=== PATIENT | female | born 1945 | race Caucasian/White ===

== ENCOUNTER 2018-11-12 11:50 | Day surgery (SDC) | payer MEDICARE, OTHER ==
[~2018-11-12 11:50] MED LIST: ALEVE220 MG PO; IRON18 MG PO; OXYCODONE HCL5 MG PO; PERCOCET 7.5-31 EACH PO; TYLENOL325 MG PO; VITAMIN B-12250 MCG PO; VITAMIN C100 MG PO; VITAMIN D32000 UNI1 PO
[2018-11-12] MEDS ORDERED: TURMERIC500 M2 PO (12:05)
[2018-11-12] MEDS ORDERED: MAGNESIUM100 MG PO (12:05)
--- NOTE | 2018-11-13 15:36 | OR ---
[facility] [address] [facility] [place], [place] [address] Signed DATE OF OPERATION: 11/12/2018 SURGEON: Alona Matthews MD DATE OF PROCEDURE: 11/12/2018 PREOPERATIVE DIAGNOSES: 1. Right breast mass with axillary adenopathy consistent with advanced breast cancer. 2. History of left total mastectomy with axillary dissection, radiation therapy and chemotherapy for breast cancer in 1991 (Dr. Sal Asif). 3. Recent findings of positive BRCA mutation. POSTOPERATIVE DIAGNOSES: 1. Right breast mass with axillary adenopathy consistent with advanced breast cancer. 2. History of left total mastectomy with axillary dissection, radiation therapy and chemotherapy for breast cancer in 1991 (Dr. Sal Asif). 3. Recent findings of positive BRCA mutation. PROCEDURE: Right upper outer quadrant core biopsy of breast. ANESTHESIA: 1% lidocaine. INDICATION: A 73-year-old white woman is a patient of SHAMIR Lizarraga, who was found to have a dense mass per right breast measures at least 6 cm. A mammogram showed a BI-RADS category 5 lesion. Clinical examination shows a dense mass, but non fixation to the chest wall. There is axillary adenopathy which is highly suspicious. She has no arm edema. Of special note, she underwent left modified radical mastectomy by Dr. Sal Asif in 1991 for breast cancer. Therapy included chemotherapy and radiation therapy, she tells me. Given the distance of time since that intervention, no other medical records are available locally. She has recently undergone BRCA testing by Dr. Radha Power, and found to be positive. She was admitted at this time to undergo core biopsy of the breast lesion on the right, Electronically Signed By: ALONA MATTHEWS MD 11/13/18 1536 PATIENT NAME: JALYN NICHOLSON OPERATIVE REPORT DATE OF : 47 REPORT #: [id number] PHYSICIAN: ALONA MATTHEWS MD PCP: RADHA PWOER REPORT IS CONFIDENTIAL AND NOT TO BE RELEASED WITHOUT AUTHORIZATION [facility] [address] [place], [place] [address] Signed anticipating likely a modified radical mastectomy. Risks of bleeding, infection, and so forth were reviewed with her. She understands and wished to proceed. FINDINGS: The lesion was quite dense, but 5 good core biopsies were taken of the upper outer quadrant of the breast. The breast is mobile and not fixed to the chest wall. Axillary adenopathy was in the low axilla and biopsy was not taken of axillary lymph node. DESCRIPTION OF PROCEDURE: In a semirecumbent position the right breast was prepared with a chlorhexidine solution and draped sterilely. A 1% lidocaine was injected in the upper outer aspect of the right breast. A small puncture was made with an #11 blade. Using a 14-gauge biopsy gun device multiple biopsies were taken of the upper outer quadrant of the breast showing good core specimens. Pressure was applied to the biopsy site as there was a small amount of venous oozing. Once hemostasis was assured. A bandage was applied. I have discussed with the patient in detail the particulars regarding her situation and recommendation is made for modified radical mastectomy once pathology is confirmed as malignancy. This is particularly a notable recommendation given her BRCA testing, which was positive. I have reviewed with the medical oncologist whether or not preoperative chemotherapy would be necessary. She does not have inflammatory breast cancer and the advantage of neoadjuvant approach is primarily to shrink the tumor size down to allow for breast conservation therapy which is undesired and unlikely in her situation anyway. On that basis, proceeding to mastectomy and axillary dissection next week will be arranged as she allows. MD NAILA Coyle/MODL /[id number] cc: ISAIAH Salcido Copies: RADHA POWER Electronically Signed By: ALONA MATTHEWS MD 11/13/18 1536 PATIENT NAME: JALYN NICHOLSON OPERATIVE REPORT DATE OF : 47 REPORT #: [id number] PHYSICIAN: ALONA MATTHEWS MD PCP: RADHA POWER REPORT IS CONFIDENTIAL AND NOT TO BE RELEASED WITHOUT AUTHORIZATION [facility] [address] [facility] [place], [place] [address] Signed ~ Electronically Signed By: ALONA MATTHEWS MD 11/13/18 1536 PATIENT NAME: JALYN NICHOLSON OPERATIVE REPORT DATE OF : 47 REPORT #: [id number] PHYSICIAN: ALONA MATTHEWS MD PCP: RADHA POWER REPORT IS CONFIDENTIAL AND NOT TO BE RELEASED WITHOUT AUTHORIZATION
== END 2018-11-12 12:55 | disposition home or self-care (01) ==
LOC: RAD 11:50
PROC: 0HBT3ZX Excision of Right Breast, Percutaneous Approach, Diagnostic (ICD-10-PCS; principal; 2018-11-12)
DX: C50.411 Malignant neoplasm of upper-outer quadrant of right female breast (principal); Z92.3 Personal history of irradiation; Z90.12 Acquired absence of left breast and nipple; Z85.3 Personal history of malignant neoplasm of breast
CPT/HCPCS: 71046; 88305; 88342; 88360; 88377

== ENCOUNTER 2018-11-19 07:19 | Observation (INO) | payer MEDICARE, OTHER ==
[~2018-11-19] VITALS: Ht 160 cm; Wt 83.9 kg
[~2018-11-19 07:19] MED LIST changes: +MAGNESIUM100 MG PO; +TURMERIC500 M2 PO
--- NOTE | 2018-11-19 12:15 | NUR ---
PT IS SITTING IN BED-ALERT, ORIENTED AND SUPPORTED BY HER REBA. PT MENTIONED THAT HAD NOT BEEN IN YET, CHRISTIANO HAD. PT REQUESTED PRAYER, WILL FOLLOW NEEDED
--- NOTE | 2018-11-19 13:54 | NUR ---
11/19/18 1354 Le[address] Luna SN 1324- PT ARRIVES IN PACU. PT IS RESTING WITH EYES OPEN IN SUPINE POSITION. RESPS ARE EVEN AND UNLABORED. 02 SAT HIGH 90'S ON 6L VIA MASK. PT REPORTS 3 OUT OF 10 PAIN THAT IS TOLERABLE TO HER. EDUCATED TO REPORT IF THIS WORSENS. PT VERBALIZED UNDERSTANDING. PT DENIES ANY NAUSEA AND DIZZINESS AT THIS TIME. 1334- PT RESTING IN SUPINE POSITION WITH EYES OPEN, TOLERATING WELL. RESPS EVEN AND UNLABORED, 02 SAT HIGH 90S ON 6 LV VIA NC. PT REPORTING 3 OUT OF 10 PAIN THAT IS TOLERABLE FOR HER. EDUCATION GIVEN TO REPORT IF THIS WORSENS. 02 REMOVED AT THIS TIME. RESPS REMAIN EVEN AND UNLABORED. 02 SAT MID TO HIGH 90S ON RA. 1345-PT 02 PERIODICALLY DROPS TO LOW 90'S AND RESPS BECOME SHALLOW. WHEN STIMULATED BY VOICE, PT IS ABLE TO BRING 02 SAT BACK UP INDEPENDENTLY BY DEEP BREATHING. 1346- HOB POSITION IN SEMIFOWLERS POSITION. PT REPORTS THAT IT IS EASIER FOR HER TO BREATHE THIS WAY. TOLERATING WELL. RESPS ARE EVEN AND UNLABORED BUT REMAIN SHALLOW AT TIMES. PT 02 SAT CONTINUES TO PERIODICALLY DROP TO THE LOW 90'S AND RESPS PERIODICALLY DROP. WHEN STIMULATED BY VOICE, THE PT IS ABLE TO INCREASE THESE INDEPENDENTLY BY COUGHING AND DEEP BREATHING. PT REPORTS 3 OUT OF 10 PAIN THAT IS TOLERABLE FOR HER. SHE REPORTS NO DIZZINESS OR NAUSEA AT THIS TIME.
--- NOTE | 2018-11-19 14:55 | NUR ---
PT RESTING IN BED. VSS. PT RATING PAIN 2/10. PT ON ROOM AIR, LUNG SOUNDS CLEAR, O2 SATS 99%. PT TOLERATED CLEAR LIQUID, DENIES NAUSEA. PT SBA TO BATHROOM, VOIDED. PT STATES INCREASED PAIN WITH MOVEMENT, DISCUSSED PAIN MEDICATIONS, PT REQUESTING MOTRIN AFTER DINNER. PT DENIES OTHER NEEDS AT THIS TIME.
--- NOTE | 2018-11-19 15:43 | NUR ---
PT RESTIGN IN BED. PT ON ROOM AIR, O2 SATS 99%. PT EATING CLEARS TRAY, TOLERATING WELL, DENIES NAUSEA. PIA FROM BREAST TEAM AT BEDSIDE TO FIT CAMISOLE. MARIETTA DRAIN X2 EMPTIED FOR 40 ML LATERAL AND 20 ML MEDIAL, MARIETTA DRAIN TEACHING COMPLETED, WILL CONTINUE TO EDUCATE PT. DRESSING CDI. PT DENIES OTHER NEEDS AT THIS TIME. VSS.
--- NOTE | 2018-11-19 17:40 | NUR ---
PT RESTING IN BED. PT PAIN TOLERABLE, GIVEN 600 MG MOTRIN PER PT REQUEST. MARIETTA DRAINS EMPTIED FOR 30 ML LATERAL AND 50 ML MEDIAL. PT ON ROOM AIR, O2 SATS 99%. PT TOLERATED REGULAR DIET. VSS. PT DENIES OTHER NEEDS AT THIS TIME.
--- NOTE | 2018-11-19 18:04 | NUR ---
PT RECEIVED FROM PACU AT 1420 FOR RIGHT MASTECTOMY. PT ON ROOM AIR, LUNG SOUNDS CLEAR. PT TOLERATING REGULAR DIET, DENIES NAUSEA. IV FLUIDS INFUSING D5LR AT 85 ML/HR, ANCEF. PT PAIN WELL CONTROLLED, RECEIVED MOTRIN. SBA TO AMBULATE TO BATHROOM, VOIDING QS. RIGHT CHEST WITH MEPILEX/OPSITE DRESSING CDI. MARIETTA DRAIN X2, DRAINED 70 ML FROM EACH SINCE ARRIVING TO FLOOR. SCDS IN PLACE.
--- NOTE | 2018-11-19 19:30 | NUR ---
PAIN 3/10 NO PAIN MEDS WANTED. AT BEDSIDE. GIVEN REPORT FROM DAYSAIXA RN.
--- NOTE | 2018-11-19 21:05 | NUR ---
VITALS AND I&os done and charted. fresh ice water given to pt and cranberry juice for her . bedside table and call light in reach.
--- NOTE | 2018-11-19 21:26 | NUR ---
PATIENT RESTING QUIETLY IN BED WATCHING TV. AT BEDSIDE. I+O'S DONE. VS DONE. PAIN 2/10 PAIN MEDICATION NOT DESIRED AT THIS TIME. SCD'S IN PLACE.
--- NOTE | 2018-11-19 22:36 | NUR ---
PATIENT RESTING IN BED EYES CLOSED RESPIRATIONS REGULAR AND EVEN, ASLEEP AT BEDSIDE IN RECLINER.
--- NOTE | 2018-11-20 00:25 | NUR ---
PATIENT AWAKE, BUT PAIN STILL UNDERCONTROL, PATIENT SAYS SHE IS DOING FINE AND NEEDS NOTHING AT THIS TIME.
--- NOTE | 2018-11-20 02:53 | NUR ---
PATIENT ASSESSMENT DONE, VS STABLE, I+O DONE. PATIENT UP TO THE BATHROOM AND BACCK TO BED WITH ONE PERSON ASSIST. 2/10 PAIN WITH MOVEMENT OTHERWISE NO PAIN.
--- NOTE | 2018-11-20 05:01 | NUR ---
PATIENT HAS CAT NAPPED THROUGH THE NIGHT, HAS NOT SLEEPED MUCH. RIGHT SIDED DRESSING CLEAN DRY AND INTACT. BOTH MARIETTA'S ARE DRAINING SANGUINUS FLUID. PATIENT HAS NO PAIN UNLESS UP MOVING AROUND AND THEN IT IS2-10. SCD'S IN PLACE. PULSE OX ON AND SATING 100% ON ROOM AIR. AT BEDSIDE IN RECLINER. D5LR RUNNING AT 85MLS/HR.
--- NOTE | 2018-11-20 06:29 | NUR ---
HELPED PT FROM THE BATHROOM BACK TO BED. SCD'S PLUGGED BACK IN. FRESH WATER FOR PT AND FRESH CRANBERRY JUICE FOR HER .
--- NOTE | 2018-11-20 07:20 | NUR ---
RECIEVED BEDSIDE REPORT FROM STEVEN HOLLAND. PT RESTING, REPORTING SHE DID NOT GET MUCH SLEEP LAST NIGHT. REPORTS MINIMAL PAIN, BLOCK IS STILL EFFECTIVE. DRAINS ARE IN PLACE, DRAINING SANGIOUS FLUID. DRESSINGS ARE CLEAN, DRY, AND INTACT.
--- NOTE | 2018-11-20 08:30 | NUR ---
RN STARTED DISCHARGE TEACHING FOR MARIETTA DRAIN CARE AND HOW TO MEASURE AND RECORD OUTPUT. PT WAS RECEPTIVE TO TEACHING AND ASKED QUESTIONS. PT WILL RETURN DEMONTRATE AT NEXT RECORDING.
--- NOTE | 2018-11-20 09:17 | NUR ---
PATIENT SITTING UP IN BED. IN ROOM. PATIENT GOES TO USE BATHROOM. ONE PERSON ASSISTING. LINENS CHANGED. PATIENT BACKS TO BED. GOWN CHANGED. VITAL SIGNS AND I&O DONE. CALL LIGHT WITHIN REACH. NO OTHER NEEDS AT THIS TIME
[2018-11-20] MEDS ORDERED: TYLENOL325 MG PO (12:52)
[2018-11-20] MEDS ORDERED: IBUPROFEN600 MG PO (12:52)
--- NOTE | 2018-11-20 13:27 | NUR ---
PATIENT SITTING UP IN BED. IN ROOM. VITAL SIGNS AND I&O DONE. CALL LIGHT WITHIN REACH. NO OTHER NEEDS AT THIS TIME
--- NOTE | 2018-11-20 13:51 | NUR ---
PT RERSTING IN BED UPRIGHT. SHE IS ALERT, ORIENTED AND SUPPORTED AT BS BY HER REBA. WITH A BIG SMILE SHE TOLD ME SHE IS READY TO GO! BOTH ARE VERY PLEASANT, PT SAID SHE HAD NO PAIN. THEY BOTH REQUESTED PRAYER, WILL FOLLOW NEEDED
--- NOTE | 2018-11-20 22:37 | OR ---
[facility] [address] [place], [place] [address] Signed DATE OF OPERATION: 11/19/2018 SURGEON: Alona Matthews MD PREOPERATIVE DIAGNOSES: 1. Large right breast cancer with clinically suspicious axilla (infiltrating ductal carcinoma). 2. History of left mastectomy for breast cancer in 1992, Dr. Sal Asif. 3. Recent finding BRCA2 genetic abnormality. POSTOPERATIVE DIAGNOSES: 1. Large right breast cancer with clinically suspicious axilla (infiltrating ductal carcinoma). 2. History of left mastectomy for breast cancer in 1992, Dr. Sal Asif. 3. Recent finding BRCA2 genetic abnormality. 4. Clinically suspicious tumor nodules of breast inferior aspect. PROCEDURE PERFORMED: Right modified radical mastectomy with level 3 lymphadenectomy, prolonged, complicated, difficult. ANESTHESIA: General LMA; Alona Vela CRNA. INDICATION: This 73-year-old white woman is a patient of Radha Power NP. She underwent left mastectomy for breast cancer in [address] Sal Asif. In addition to modified radical mastectomy she underwent chemotherapy as well as radiation therapy to the chest wall. She has fallen away from typical breast cancer followup over the past several years and presented to Radha Power, who noted a dense mass of the right breast about the size of a softball actually. There was some ulceration of the skin and clinically suspicious right axillary lymph nodes. There was no sign of recurrent tumor of the right chest wall or right axilla. A chest x-ray is normal. Core biopsy was obtained of the lesion confirming infiltrating ductal carcinoma. She underwent BRCA2 testing by SHAMIR Lizarraga, where she was noted to be positive. Her only family history for breast cancer that she is aware was a paternal aunt. Her best treatment option is that of mastectomy at this point. I discussed with her the possibility of neoadjuvant chemotherapy; however, it is deemed a little benefit comparatively though she likely will have chemotherapy offered postoperatively. Risks Electronically Signed By: ALONA MATTHEWS MD 11/20/18 2237 PATIENT NAME: JALYN NICHOLSON OPERATIVE REPORT DATE OF : 47 REPORT #: [id number] PHYSICIAN: ALONA MATTHEWS MD PCP: RADHA POWER REPORT IS CONFIDENTIAL AND NOT TO BE RELEASED WITHOUT AUTHORIZATION [facility] [address] [place], [place] [address] Signed of bleeding, infection, local recurrence, distant metastases, wound failure problems, and so forth were reviewed in detail. She understands as does her and wished to proceed. FINDINGS: The lesion was dense and firm and about the size of a baseball on the rights side in the upper outer aspect. Ulceration of the skin was noted and several subdermal nodules were also noted in the inferior aspect. Wide resection was undertaken to incorporate those areas. She had no sign of erythema of the breast and minimal edema. Clinically, positive axillary lymph nodes were identified as well. The extended right axillary lymphadenectomy was undertaken to level 3. The long thoracic and thoracodorsal neurovascular bundles were identified as well and preserved. Noted also were small lymph nodes highly suspicious on the surface of the pectoralis, which were excised additionally. Operation was prolonged, complicated, and difficult on the basis of her extent of tumor and other anatomic factors, but was accomplished safely. DESCRIPTION OF PROCEDURE: The patient was brought to the operating room, given general anesthetic by LMA technique. Preoperative antibiotics were given. Subcutaneous heparin administered and sequential compression device stockings used. Photographs were taken at the outset. The chest wall and axilla on the right side were prepared with a Betadine solution and draped sterilely. Close inspection showed some suspicious dermal nodules in the inferior aspect in addition to the ulcerated lesion. The area of resection was marked. A wide resection of tissue would be required considering the bulky tumor itself. Elliptical excision was undertaken incorporating the nipple-areolar complex, the bulk of the tumor, and the ulcerated area and suspicious nodules inferiorly. An incision was made with a 10 blade and developed more fully with electrocautery. Superior and inferior flaps were developed using sharp dissection. Large bleeding vessels were secured with hemostats temporarily. Once the superior and inferior flaps were developed, the breast was dissected free from the medial to lateral direction using electrocautery. The fascia was excised in continuity with the breast. There were three separate areas of the right pectoralis muscle that had very suspicious lymph nodes measuring about 5 mm in size. They were firm and hard. Palpation of the pectoralis muscle itself did not demonstrate any intramuscular nodules, only those that were on the surface noted. Preservation of the axillary contents in continuity with the mastectomy specimen was undertaken. Good elevation of the pectoralis muscle and so forth was undertaken and using sharp dissection the fat pad of the axilla was incised transversely identifying ultimately the axillary vein. Dissection was undertaken more fully and palpation in the superior aspect showed clinically positive lymph nodes extending up to actually level 3. Clips were used as necessary to secure vessels to free the fatty tissue of the axilla Electronically Signed By: ALONA MATTHEWS MD 11/20/18 2237 PATIENT NAME: JALYN NICHOLSON OPERATIVE REPORT DATE OF : 47 REPORT #: [id number] PHYSICIAN: ALONA MATTHEWS MD PCP: RADHA POWER REPORT IS CONFIDENTIAL AND NOT TO BE RELEASED WITHOUT AUTHORIZATION [facility] [address] [place], [place] [address] Signed from the axillary vein itself. Dissection was undertaken in a meticulous way to free the axilla of any suspicious lymph nodes, which were new and many. A level 3 dissection was undertaken ultimately. Clips were used to zenaida the upper aspect of the axilla and dissected free. The long thoracic and thoracodorsal nerve and vascular bundles were identified as well. The axillary fat between the 2 and to the level of it were excised in continuity with the axillary contents as well. Ultimately the breast, axillary tail of Moore and extended lymphadenectomy, was removed and photographs taken. The tumor itself was bivalved to see the dense nature of the lesion. Irrigation was undertaken in the wound and axilla with sterile water for its tumor-lytic effect. There was no untoward bleeding. Attention was turned to the pectoral lymph nodes, which were clinically positive being very hard, though very small. These were excised independently. It was deemed inadvisable to do pectoral muscle excision itself as the lymph nodes in question were on the surface of the pectoralis and not in the substance of it. Two separate stab incisions were made inferiorly allowing for passage of a 7 mm flat Jose drain beneath the flap and an additional 7 mm drain in the axilla itself. Photographs have been taken throughout the operation. Closure was then undertaken with interrupted 2-0 Vicryl in deep dermal layer after securing the drains to the skin with 2-0 nylon suture. A running subcuticular 3-0 Vicryl was used to close the skin. Of note, a dart type closure of the lateral aspect of the incision was undertaken for its cosmetic benefit. A running subcuticular 3-0 Vicryl was used for the skin. Steri-Strips were applied as was Mepilex silver sponge dressing and an OpSite. The drains were attached to bulb suction. Blood loss was estimated at 150 mL. Sponge, needle, and instrument counts were reported as correct x3. There were no known complications. Alona Matthews MD JM/MODL /[id number] cc: ISAIAH Salcido MD Electronically Signed By: ALONA MATTHEWS MD 11/20/18 2237 PATIENT NAME: JALYN NICHOLSON OPERATIVE REPORT DATE OF : 47 REPORT #: [id number] PHYSICIAN: ALONA MATTHEWS MD PCP: RADHA POWER REPORT IS CONFIDENTIAL AND NOT TO BE RELEASED WITHOUT AUTHORIZATION [address] [place], [place] [address] Signed Copies: RADHA POWER CYNTHIA SUE MD ~ Electronically Signed By: ALONA MATTHEWS MD 11/20/18 2237 PATIENT NAME: JALYN NICHOLSON OPERATIVE REPORT DATE OF : 47 REPORT #: [id number] PHYSICIAN: ALONA MATTHEWS MD PCP: RADHA POWER REPORT IS CONFIDENTIAL AND NOT TO BE RELEASED WITHOUT AUTHORIZATION
== END 2018-11-20 13:57 | disposition home or self-care (01) ==
LOC: DSVR 07:19 → DS 07:19 → MS 07:19 → EDSTATUS 09:00 → DS 14:04 → MS 14:05 → DSVR 14:20 → MS 11-20 13:57
PROVIDERS: ADMIT Surgery
PROC: 07T50ZZ Resection of Right Axillary Lymphatic, Open Approach (ICD-10-PCS; 2018-11-19)
PROC: 3E0T3BZ Introduction of Anesthetic Agent into Peripheral Nerves and Plexi, Percutaneous Approach (ICD-10-PCS; 2018-11-19)
PROC: 0HTT0ZZ Resection of Right Breast, Open Approach (ICD-10-PCS; principal; 2018-11-19 09:00)
DX: C50.411 Malignant neoplasm of upper-outer quadrant of right female breast (principal); G89.18 Other acute postprocedural pain; Z90.12 Acquired absence of left breast and nipple; Z15.01 Genetic susceptibility to malignant neoplasm of breast
CPT/HCPCS: 36415; 62325; 76942; 80048; 85025; 96372; 96374; 96376; G0378; J0690; J1100; J1644; J1885; J2250; J2405; J2704; J2765; J2795; J3010; J7120

== ENCOUNTER 2020-06-01 16:53 | Emergency (ER) | payer MEDICARE, OTHER ==
[~2020-06-01] VITALS: Ht 160 cm; Wt 73.9 kg
[~2020-06-01 16:53] MED LIST changes: +BIOTIN1 M1 PO; +IBUPROFEN600 MG PO; +LETROZOLE2.5 MG PO; +PROBIOTIC1 EAC4 PO
--- NOTE | 2020-06-02 17:44 | EKG ---
[facility] [address] [place] [address] Signed Sinus rhythm with 2nd degree AV block with 2:1 AV conduction Left axis deviation Moderate voltage criteria for LVH, may be normal variant Abnormal ECG When compared with ECG of 01-JUN-2020 15:12, (Unconfirmed) T wave inversion now evident in Inferior leads T wave amplitude has increased in Lateral leads Confirmed by JANET THOMAS MD ([id number]) on 06/02/2020 5:44:33 PM Electronically Signed By: JANET THOMAS MD 06/02/20 1744 PATIENT NAME: JALYN NICHOLSON Electrocardiogram DATE OF : 47 PHYSICIAN: JANET THOMAS MD REPORT #: [id number] REPORT IS CONFIDENTIAL AND NOT TO BE RELEASED WITHOUT AUTHORIZATION
== END 2020-06-01 20:21 | disposition short-term general hospital (02) ==
LOC: ED 16:53
DX: I44.1 Atrioventricular block, second degree (principal); Z79.899 Other long term (current) drug therapy
CPT/HCPCS: 80053; 84484; 85025; 93005; 93010; 99285-25; C9803; U0003